=== PATIENT | female | born 1955 | race Two or more races ===

== ENCOUNTER 2023-07-05 06:50 | Day surgery (SDC) | payer OTHER | END 2023-07-05 13:25 | disposition home or self-care (01) | LOC: AMB-ENDOS 06:50 → CIR.AMB 13:15 → AMB-ENDOS 13:25 | PROVIDERS: ATTEND Surgery | DX: D12.5 Benign neoplasm of sigmoid colon (principal); Z20.822 Contact with and (suspected) exposure to COVID-19 ==